=== PATIENT | male | born 1930 ===

== ENCOUNTER → 2018-04-06 12:47 | Outpatient (CLI) | payer OTHER | END | disposition home or self-care (01) | LOC: EKG 12:47 | DX: I49.8 Other specified cardiac arrhythmias (principal); R31.1 Benign essential microscopic hematuria ==

== ENCOUNTER 2018-07-26 07:57 | Outpatient (CLI) | payer OTHER ==
[~2018-07-26] VITALS: Ht 162.6 cm; Wt 71.7 kg
== END 2018-07-26 08:10 | disposition home or self-care (01) ==
LOC: OFIC 805 07:57
DX: Q18.0 Sinus, fistula and cyst of branchial cleft (principal)

== ENCOUNTER 2018-08-30 15:27 | Outpatient (CLI) | payer OTHER ==
[~2018-08-30] VITALS: Ht 152.4 cm; Wt 71.7 kg
== END 2018-08-30 15:40 | disposition home or self-care (01) ==
LOC: OFIC 805 15:27
DX: Q18.1 Preauricular sinus and cyst (principal); J32.4 Chronic pansinusitis

== ENCOUNTER 2018-09-29 06:55 | Outpatient (CLI) | payer OTHER | END 2018-09-29 06:59 | disposition home or self-care (01) | LOC: LAB 06:55 | DX: C67.0 Malignant neoplasm of trigone of bladder (principal) ==

== ENCOUNTER 2018-12-27 13:13 | Outpatient (CLI) | payer OTHER ==
[~2018-12-27] VITALS: Ht 152.4 cm; Wt 70.3 kg
== END 2018-12-27 13:30 | disposition home or self-care (01) ==
LOC: OFIC 805 13:13
DX: J32.4 Chronic pansinusitis (principal); Q18.0 Sinus, fistula and cyst of branchial cleft; Q18.1 Preauricular sinus and cyst; J30.89 Other allergic rhinitis

== ENCOUNTER 2019-02-22 07:17 | Outpatient (CLI) | payer OTHER | END 2019-02-22 09:30 | disposition home or self-care (01) | LOC: LAB 07:17 | DX: C67.0 Malignant neoplasm of trigone of bladder (principal); D68.8 Other specified coagulation defects ==

== ENCOUNTER 2019-06-03 09:19 | Outpatient (CLI) | payer OTHER ==
[~2019-06-03] VITALS: Ht 152.4 cm; Wt 73.5 kg
== END 2019-06-03 14:41 | disposition home or self-care (01) ==
LOC: OFIC 805 09:19
DX: Q18.1 Preauricular sinus and cyst (principal); Q18.0 Sinus, fistula and cyst of branchial cleft; J30.89 Other allergic rhinitis

== ENCOUNTER 2019-06-17 08:37 | Outpatient (CLI) | payer OTHER ==
[~2019-06-17] VITALS: Ht 152.4 cm; Wt 72.6 kg
== END 2019-06-17 09:00 | disposition home or self-care (01) ==
LOC: OFIC 805 08:37
DX: Q18.1 Preauricular sinus and cyst (principal); Q18.0 Sinus, fistula and cyst of branchial cleft; J32.4 Chronic pansinusitis; J30.89 Other allergic rhinitis

== ENCOUNTER 2020-01-16 09:12 | Outpatient (CLI) | payer OTHER ==
[~2020-01-16] VITALS: Ht 152.4 cm; Wt 68.0 kg
[2020-01-16] MEDS ORDERED: CLEOCIN HCL300 MG PO (13:39)
[2020-01-16] MEDS ORDERED: PROBIOTIC1 EAC2 PO (13:40)
[2020-01-16] MEDS ORDERED: ZYRTEC10 M3 PO (13:42)
[2020-01-16] MEDS ORDERED: SINGULAIR10 MG PO (13:42)
[2020-01-16] MEDS ORDERED: FLONASE16 GM NASAL (13:42)
== END 2020-01-16 15:45 | disposition home or self-care (01) ==
LOC: OFIC 805 09:12
PROVIDERS: ATTEND Otolaryngology
DX: J30.89 Other allergic rhinitis (principal); J32.4 Chronic pansinusitis; Q18.0 Sinus, fistula and cyst of branchial cleft

== ENCOUNTER 2020-01-24 08:39 | Outpatient (CLI) | payer OTHER ==
[~2020-01-24 08:39] MED LIST: CLEOCIN HCL300 MG PO; FLONASE16 GM NASAL; PROBIOTIC1 EAC2 PO; SINGULAIR10 MG PO; ZYRTEC10 M3 PO
== END 2020-01-24 18:05 | disposition home or self-care (01) ==
LOC: OFIC 805 08:39
PROVIDERS: ATTEND Otolaryngology
DX: J30.89 Other allergic rhinitis (principal); J32.4 Chronic pansinusitis; Q18.0 Sinus, fistula and cyst of branchial cleft; Q18.1 Preauricular sinus and cyst

== ENCOUNTER 2020-01-30 07:16 | Outpatient (CLI) | payer OTHER | END 2020-01-30 07:29 | disposition home or self-care (01) | LOC: TOM 07:16 | PROVIDERS: ATTEND Otolaryngology | DX: Q18.0 Sinus, fistula and cyst of branchial cleft (principal) | CPT/HCPCS: 70487; Q9965 ==

== ENCOUNTER → 2020-02-14 | Outpatient (CLI) | payer OTHER | END | disposition home or self-care (01) | LOC: OFIC 805 09:08 | PROVIDERS: ATTEND Otolaryngology | DX: Q18.0 Sinus, fistula and cyst of branchial cleft (principal); J30.89 Other allergic rhinitis ==

== ENCOUNTER → 2020-05-29 | Outpatient (CLI) | payer OTHER | END | disposition home or self-care (01) | LOC: LAB 01-30 07:02 → OFIC 805 10:45 | PROVIDERS: ATTEND Otolaryngology | DX: Q18.0 Sinus, fistula and cyst of branchial cleft (principal) ==

== ENCOUNTER → 2020-05-31 | Outpatient (CLI) | payer OTHER | END | disposition home or self-care (01) | LOC: OFIC 805 14:15 | PROVIDERS: ATTEND Otolaryngology | DX: Q18.0 Sinus, fistula and cyst of branchial cleft (principal) ==

== ENCOUNTER 2020-07-02 11:40 | Day surgery (SDC) | payer OTHER ==
[~2020-07-02 11:40] MED LIST changes: +COZAAR100 MG PO; +PEPCID AC20 MG PO; +SIMVASTATIN40 MG PO; +SYNTHROID50 MCG
== END 2020-07-02 19:00 | disposition home or self-care (01) ==
LOC: CIR.AMB 11:40
PROVIDERS: ATTEND Otolaryngology
DX: Q18.0 Sinus, fistula and cyst of branchial cleft (principal); Q18.1 Preauricular sinus and cyst; Q18.2 Other branchial cleft malformations; Z20.828 Contact with and (suspected) exposure to other viral communicable diseases

== ENCOUNTER 2020-07-06 07:37 | Outpatient (CLI) | payer OTHER | END 2020-07-06 07:42 | disposition home or self-care (01) | LOC: LAB 07:37 | PROVIDERS: ATTEND Internal Medicine Cardiovascular Disease | DX: I10 Essential (primary) hypertension (principal); E11.9 Type 2 diabetes mellitus without complications; E03.8 Other specified hypothyroidism; E78.2 Mixed hyperlipidemia ==

== ENCOUNTER 2020-07-10 11:42 | Outpatient (CLI) | payer OTHER | END 2020-07-10 13:20 | disposition home or self-care (01) | LOC: OFIC 805 11:42 | PROVIDERS: ATTEND Otolaryngology | DX: G93.89 Other specified disorders of brain (principal) ==

== ENCOUNTER 2020-08-16 10:11 | Outpatient (CLI) | payer OTHER | END 2020-08-16 12:00 | disposition home or self-care (01) | LOC: OFIC 805 10:11 | PROVIDERS: ATTEND Otolaryngology | DX: Q18.0 Sinus, fistula and cyst of branchial cleft (principal) ==

== ENCOUNTER → 2020-09-04 | Outpatient (CLI) | payer OTHER | END | disposition home or self-care (01) | LOC: OFIC 805 09-03 09:30 | PROVIDERS: ATTEND Otolaryngology | DX: Q18.0 Sinus, fistula and cyst of branchial cleft (principal); J32.0 Chronic maxillary sinusitis ==

== ENCOUNTER 2020-09-18 12:45 | Outpatient (CLI) | payer OTHER | END 2020-09-18 17:57 | disposition home or self-care (01) | LOC: OFIC 805 12:45 | PROVIDERS: ATTEND Otolaryngology | DX: Q18.0 Sinus, fistula and cyst of branchial cleft (principal); J30.89 Other allergic rhinitis ==

== ENCOUNTER 2020-10-30 06:54 | Outpatient (CLI) | payer OTHER | END 2020-10-30 06:58 | disposition home or self-care (01) | LOC: LAB 06:54 | PROVIDERS: ATTEND Internal Medicine Cardiovascular Disease | DX: I10 Essential (primary) hypertension (principal); E11.9 Type 2 diabetes mellitus without complications; E03.8 Other specified hypothyroidism; Z12.11 Encounter for screening for malignant neoplasm of colon; N40.0 Benign prostatic hyperplasia without lower urinary tract symptoms ==

== ENCOUNTER → 2020-10-31 10:59 | Outpatient (CLI) | payer OTHER | END | disposition home or self-care (01) | LOC: LAB 10:59 | PROVIDERS: ATTEND Internal Medicine Cardiovascular Disease | DX: I10 Essential (primary) hypertension (principal); E11.9 Type 2 diabetes mellitus without complications; E03.8 Other specified hypothyroidism; E78.2 Mixed hyperlipidemia; Z12.11 Encounter for screening for malignant neoplasm of colon; N48.0 Leukoplakia of penis ==

== ENCOUNTER 2021-01-01 10:08 | Outpatient (CLI) | payer OTHER | END 2021-01-01 10:16 | disposition home or self-care (01) | LOC: LAB 10:08 | PROVIDERS: ATTEND Allergy & Immunology Allergy | DX: T50.905A Adverse effect of unspecified drugs, medicaments and biological substances, initial encounter (principal); T50.995D Adverse effect of other drugs, medicaments and biological substances, subsequent encounter; L27.2 Dermatitis due to ingested food; L24.5 Irritant contact dermatitis due to other chemical products; J30.89 Other allergic rhinitis; J32.1 Chronic frontal sinusitis; E29.1 Testicular hypofunction; L24.2 Irritant contact dermatitis due to solvents ==

== ENCOUNTER 2021-01-11 10:00 | Outpatient (CLI) | payer OTHER | END 2021-01-11 11:06 | disposition home or self-care (01) | LOC: OFIC 805 10:00 | PROVIDERS: ATTEND Otolaryngology | DX: Q18.0 Sinus, fistula and cyst of branchial cleft (principal); J30.89 Other allergic rhinitis ==

== ENCOUNTER 2021-08-21 06:44 | Outpatient (CLI) | payer OTHER | END 2021-08-21 06:48 | disposition home or self-care (01) | LOC: LAB 06:44 | PROVIDERS: ATTEND Specialist | DX: I10 Essential (primary) hypertension (principal); M05.79 Rheumatoid arthritis with rheumatoid factor of multiple sites without organ or systems involvement ==

== ENCOUNTER 2021-10-15 07:18 | Outpatient (CLI) | payer OTHER | END 2021-10-15 07:56 | disposition home or self-care (01) | LOC: LAB 07:18 | DX: R19.7 Diarrhea, unspecified (principal); K21.9 Gastro-esophageal reflux disease without esophagitis; Z12.11 Encounter for screening for malignant neoplasm of colon; D64.9 Anemia, unspecified; E16.2 Hypoglycemia, unspecified; E03.9 Hypothyroidism, unspecified; E78.5 Hyperlipidemia, unspecified; C67.0 Malignant neoplasm of trigone of bladder; N35.811 Other urethral stricture, male, meatal ==

== ENCOUNTER 2021-10-15 14:15 | Outpatient (CLI) | payer OTHER | END 2021-10-15 14:25 | disposition home or self-care (01) | LOC: TOM 14:15 | DX: R19.7 Diarrhea, unspecified (principal); K21.9 Gastro-esophageal reflux disease without esophagitis ==